=== PATIENT | male | born 1950 | race Hispanic/Latino ===

== ENCOUNTER 2018-08-21 12:05 | Inpatient (IN) | payer OTHER, MEDICARE ==
[2018-08-21 12:15] VITALS: BMI 32.1
--- NOTE | 2018-08-21 12:22 | ED PDOC ---
Lower Extremity Pain/Injury Time Seen by Provider: 08/21/18 12:20 Chief Complaint (Nursing): Lower Extremity Problem/Injury Chief Complaint (Provider): Left Ankle Pain History Per: Patient History/Exam Limitations: no limitations Onset/Duration Of Symptoms: Days (x3 weeks) Additional Complaint(s): Patient is a 68 year old male who presents to the ED for podiatry evaluation. Patient states 3 weeks ago he slipped on ice while stepping up on a sidewalk curb when he slipped and fell, sustaining a displaced fracture to the distal fibula. Patient reports he was under the care of his linux security administrator, Dr Stewart, who referred him to Dr Duarte for surgery. Patient reports no complaints at present and presented to the ED in a CAM boot with a cane. Patient reports localized swelling to the ankle but denies pain. PMD: Dr Osorio, [facility] Past Medical History Reviewed: Historical Data, Nursing Documentation, Vital Signs Vital Signs: Last Vital Signs Temp 98.2 F 08/21/18 12:15 Pulse 74 08/21/18 12:15 Resp 17 08/21/18 12:15 BP 186/92 H 08/21/18 12:15 Pulse Ox 96 08/21/18 12:15 - Medical History PMH: GERD, HTN Other PMH: "mild heart attack" - Surgical History Surgical History: Cholecystectomy - Family History Family History: States: Unknown Family Hx - Living Arrangements Living Arrangements: With Family - Social History Current smoker - smoking cessation education provided: No Alcohol: Social Drugs: Denies - Home Medications Home Medications: Ambulatory Orders Medication Instructions Recorded Albuterol Sulfate [Ventolin Hfa] 2 puff IH Q6 PRN 08/21/18 Esomeprazole Magnesium [Nexium] 20 mg PO DAILY 08/21/18 Fluticasone Nasal [Flonase] 2 spray HARSHA HS 08/21/18 Losartan [Cozaar] 25 mg PO DAILY 08/21/18 - Allergies Allergies/Adverse Reactions: Allergies Allergy/AdvReac Type Severity Reaction Status Date / Time No Known Allergies Allergy Verified 08/21/18 12:21 Review of Systems ROS Statement: Except As Marked, All Systems Reviewed And Found Negative Musculoskeletal: Positive for: Other (left ankle fracture) Physical Exam - Reviewed Nursing Documentation Reviewed: Yes Vital Signs Reviewed: Yes - Physical Exam Comments: GENERALIZED APPEARANCE: Patient is awake, alert, oriented x3 in no acute distress. Resting comfortably. SKIN: Warm, dry; (-) cyanosis. LOWER EXTREMITY: Ankle: (+) moderate effusion of the ankle with mild tenderness of the lateral malleolus/distal fibula (-) ecchymosis (-) erythema (-) skin break; (+) limited range of motion. Achilles tendon intact and nontender. Knee and foot: (-) injury with FROM. Capillary refill intact. CARDIOVASCULAR: (+) distal pulse. NEUROLOGIC: (+) distal sensation. CHEST AND RESPIRATORY: (-) wheezing; (-) rales, (-) rhonchi; breath sounds equal bilaterally. Respirations even and nonlabored. HEART AND CARDIOVASCULAR: (-) irregularity ABDOMEN AND GI: Soft; (-) tenderness. - Laboratory Results Result Diagrams: 08/21/18 13:00 08/21/18 13:00 - ECG O2 Sat by Pulse Oximetry: 96 (RA) Pulse Ox Interpretation: Normal Medical Decision Making Medical Decision Makin Initial Impression: displaced fibula fracture Plan: -IV access -CBC -CMP -PTT/PT -Type and Screen -EKG -CXR portable -Ankle XR 3 views left 1230 Case discussed with podiatry resident, Rosey Cabezas, who is agreeable to evaluation in ED. Recommends admission to med/surg for OR in AM. Case discussed with med environmental services assistant, Dr Black, who is agreeable to admission to med/surg. 1240 EKG: NSR @ 68bpm (-) ST elevation (+) LBBB, QTc 457 1330 Podiatry at bedside. See consult note. CBC and CMP grossly unremarkable. Coag profile WNL. Ankle XRs reviewed, radiology report follows Date of service: 08/21/2018 PROCEDURE: Left Ankle Radiographs. HISTORY: fracture, pre-op COMPARISON: None available. TECHNIQUE: 3 views obtained. FINDINGS: BONES: Oblique minimally displaced distal fibular fracture. No tibial fracture identified. JOINTS: Normal. No osteoarthritis. Ankle mortise maintained. Talar dome intact SOFT TISSUES: Normal. OTHER FINDINGS: None. IMPRESSION: Oblique minimally displaced distal fibular fracture. CXR reviewed, radiology report follows Date of service: 08/21/2018 HISTORY: pre-op clearance COMPARISON: No prior. TECHNIQUE: 1 view obtained. FINDINGS: LUNGS: No active pulmonary disease. PLEURA: No significant pleural effusion identified, no pneumothorax apparent. CARDIOVASCULAR: No aortic atherosclerotic calcification present. Normal cardiac size. No pulmonary vascular congestion. OSSEOUS STRUCTURES: No significant abnormalities. VISUALIZED UPPER ABDOMEN: Normal. OTHER FINDINGS: None. IMPRESSION: No active disease. 1500 On re-evaluation, patient resting comfortably on Ipad. No complaints offered. Vitals stable. Arrangements made for admission. Disposition - Clinical Impression Clinical Impression: Displaced fracture of fibula, Ankle effusion - Patient ED Disposition Is Patient to be Admitted: Yes (med/surg) Counseled Patient/Family Regarding: Studies Performed, Diagnosis - Disposition Disposition Time: 12:45 Condition: STABLE - Pt Status Changed To: Hospital Disposition Of: Inpatient (med/surg) - Admit Certification Admit to Inpatient:: After my assessment, the patient will require hospitalization for at least two midnights. This is because of the severity of symptoms shown, intensity of services needed, and/or the medical risk in this patient being treated as an outpatient. - POA Present On Arrival: None Results - Diagnostic Imaging Results Radiology Results Ankle X-Ray 08/21/18 12:30 IMPRESSION: Oblique minimally displaced distal fibular fracture. Chest X-Ray 08/21/18 12:33 IMPRESSION: No active disease.
[2018-08-21 13:12] LABS: BASO # 0.1 K/uL (0.0-0.2); BASO % 1.1 % (0.0-2.0); EOS # 0.1 K/uL (0.0-0.7); EOS % 2.5 % (0.0-4.0); HEMOGLOBIN 15.6 g/dL (12.0-18.0); LYMPH # 1.8 K/uL (1.0-4.3); LYMPH % 33.8 % (20.0-40.0); MEAN CORPUSCULAR HEMOGLOBIN 28.7 pg (27.0-31.0); MEAN CORPUSCULAR HGB CONC 32.9 g/dL (33.0-37.0); MEAN PLATELET VOLUME 9.2 fl (7.2-11.7); MONO # 0.5 K/uL (0.0-0.8); MONO % 9.4 % (0.0-10.0); NEUT # 2.8 K/uL (1.8-7.0); NEUT % 53.2 % (50.0-75.0); RBC 5.46 Mil/uL (4.40-5.90); RED CELL DISTRIBUTION WIDTH 14.6 % (11.5-14.5); WHITE BLOOD COUNT 5.2 K/uL (4.8-10.8)
[2018-08-21 13:22] LABS: ALB/GLOB RATIO 1.3 (1.0-2.1); ALBUMIN 4.3 g/dL (3.5-5.0); ALT/SGPT 29 U/L (21-72); AST/SGOT 24 U/L (17-59); BLOOD UREA NITROGEN 16 mg/dl (9-20); CALCIUM 9.6 mg/dL (8.4-10.2); GFR NON-AFRICAN AMERICAN > 60
[2018-08-21 13:23] LABS: PROTHROMBIN TIME 11.4 Seconds (9.8-13.1)
[2018-08-21 13:26] LABS: PARTIAL THROMBOPLASTIN TIME 33.6 Seconds (25.6-37.1)
--- NOTE | 2018-08-21 14:44 | CP.PCM.CON ---
History of Present Illness - History of Present Illness History of Present Illness: Podiatry Consult: Dr. Duarte 68 year male patient, with PMHx of HTN, seen and evaluated for L fibular fracture. Patient states that 3 weeks ago he slipped on ice and hurt his leg. He walked on his leg for 3 weeks before following up with his senior production manager who diagnosed him with a distal fibular fracture. His senior production manager recommended him to Dr. Duarte for fibular ORIF. He denies any additional pedal complaints. Patient continues to ambulate in CAM boot. Denies nausea/vomiting/fever/shortness of breath. PMHx: HTN, "mild VT years ago according to PMD" PSHx: Cholecystectomy ALL: NKDA Past Patient History - Past Social History Alcohol: Social Drugs: Denies - CARDIAC Hx Hypertension: Yes - GASTROINTESTINAL Hx Gastritis: Yes - PSYCHIATRIC Hx Substance Use: No - SURGICAL HISTORY Hx Cholecystectomy: Yes - ANESTHESIA Hx Anesthesia: Yes Meds Allergies/Adverse Reactions: Allergies Allergy/AdvReac Type Severity Reaction Status Date / Time No Known Allergies Allergy Verified 08/21/18 12:21 Physical Exam - Constitutional Appears: Non-toxic, No Acute Distress - Head Exam Head Exam: ATRAUMATIC, NORMOCEPHALIC - Extremities Exam Additional comments: Vascular: DP/PT 2/4, CFT < 3 seconds, TG warm to warm, + 1 edema appreciated Ortho: Pain with palpation of L distal fibular, mild tenderness with PROM/AROM, no pain with calf compression Neuro: Gross and protective sensation intact Derm: No open lesions, no erythema, no clinical signs of infection, no cellulitis appreciated - Neurological Exam Neurological exam: Alert, Oriented x3 - Psychiatric Exam Psychiatric exam: Normal Affect, Normal Mood - Skin Skin Exam: Warm Results - Vital Signs Recent Vital Signs: Last Vital Signs Temp 97.7 F 08/21/18 14:15 Pulse 64 08/21/18 14:15 Resp 16 08/21/18 14:15 BP 150/83 08/21/18 14:15 Pulse Ox 96 08/21/18 14:15 - Labs Result Diagrams: 08/21/18 13:00 08/21/18 13:00 Labs: Laboratory Results - last 24 hr 08/21/18 08/21/18 08/21/18 13:00 13:00 13:00 WBC 5.2 RBC 5.46 Hgb 15.6 Hct 47.5 MCV 87.0 MCH 28.7 MCHC 32.9 L RDW 14.6 H Plt Count 252 MPV 9.2 Neut % (Auto) 53.2 Lymph % (Auto) 33.8 Wheeler % (Auto) 9.4 Eos % (Auto) 2.5 Baso % (Auto) 1.1 Neut # (Auto) 2.8 Lymph # (Auto) 1.8 Wheeler # (Auto) 0.5 Eos # (Auto) 0.1 Baso # (Auto) 0.1 PT 11.4 INR 1.0 APTT 33.6 Sodium 139 Potassium 4.1 Chloride 102 Carbon Dioxide 28 Anion Gap 13 BUN 16 Creatinine 1.0 Est GFR ( Amer) > 60 Est GFR (Non-Af Amer) > 60 Random Glucose 107 Calcium 9.6 Total Bilirubin 0.6 AST 24 ALT 29 Alkaline Phosphatase 112 Total Protein 7.7 Albumin 4.3 Globulin 3.4 Albumin/Globulin Ratio 1.3 Blood Type Blood Type Confirm Antibody Screen BBK History Checked 08/21/18 08/21/18 13:00 13:26 WBC RBC Hgb Hct MCV MCH MCHC RDW Plt Count MPV Neut % (Auto) Lymph % (Auto) Wheeler % (Auto) Eos % (Auto) Baso % (Auto) Neut # (Auto) Lymph # (Auto) Wheeler # (Auto) Eos # (Auto) Baso # (Auto) PT INR APTT Sodium Potassium Chloride Carbon Dioxide Anion Gap BUN Creatinine Est GFR ( Amer) Est GFR (Non-Af Amer) Random Glucose Calcium Total Bilirubin AST ALT Alkaline Phosphatase Total Protein Albumin Globulin Albumin/Globulin Ratio Blood Type A POSITIVE Blood Type Confirm A POSITIVE Antibody Screen Negative BBK History Checked No verified bt Assessment & Plan - Assessment and Plan (Free Text) Assessment: 68 year male patient, with PMHx of HTN, seen and evaluated for L fibular fracture. Plan: Patient seen and evaluated Discussed in detail with Dr. Felicia Spann ankle x-rays taken; distal fibular fracture Discussed with patient the importance of icing and elevating L lower extremity Patient to remain NWB to the L lower extremity PT consulted NPO after midnight Please medically optimize patient Plan for OR tomorrow with Dr. Duarte at 12 pm - Date & Time Date: 08/21/18 Time: 14:44
--- NOTE | 2018-08-21 16:06 | RAD ---
Date of service: 08/21/2018 PROCEDURE: Left Ankle Radiographs. HISTORY: fracture, pre-op COMPARISON: None available. TECHNIQUE: 3 views obtained. FINDINGS: BONES: Oblique minimally displaced distal fibular fracture. No tibial fracture identified. JOINTS: Normal. No osteoarthritis. Ankle mortise maintained. Talar dome intact SOFT TISSUES: Normal. OTHER FINDINGS: None. IMPRESSION: Oblique minimally displaced distal fibular fracture.
--- NOTE | 2018-08-21 16:08 | RAD ---
Date of service: 08/21/2018 HISTORY: pre-op clearance COMPARISON: No prior. TECHNIQUE: 1 view obtained. FINDINGS: LUNGS: No active pulmonary disease. PLEURA: No significant pleural effusion identified, no pneumothorax apparent. CARDIOVASCULAR: No aortic atherosclerotic calcification present. Normal cardiac size. No pulmonary vascular congestion. OSSEOUS STRUCTURES: No significant abnormalities. VISUALIZED UPPER ABDOMEN: Normal. OTHER FINDINGS: None. IMPRESSION: No active disease.
--- NOTE | 2018-08-22 08:32 | CARD ---
APPROVED REPORT Date of service: 08/21/2018 EKG Measurement Heart [id number] <Conclusion> Normal sinus rhythm Possible Left atrial enlargement Left bundle branch block Abnormal ECG
[2018-08-22] MEDS ORDERED: Enoxaparin 30 mg Syringe SC SCH (09:00)
--- NOTE | 2018-08-22 09:08 | CP.PCM.PN ---
Subjective - Date & Time of Evaluation Date of Evaluation: 08/22/18 Time of Evaluation: 09:08 - Subjective Subjective: Podiatry Progress Note: Dr. Duarte 68 year male patient, with PMHx of HTN, seen and evaluated this AM for L fibular fracture. Patient resting comfortably and in NAD. He denies any additional pedal complaints. Patient refusing first echo, agreeable to echo upon second attempt. Denies nausea/vomiting/fever/shortness of breath. Objective - Vital Signs/Intake and Output Vital Signs (last 24 hours): Temp Pulse Resp BP Pulse Ox 97.9 F 79 20 157/79 H 96 08/21/18 23:49 08/21/18 23:49 08/21/18 23:49 08/21/18 23:49 08/21/18 23:49 - Medications Medications: Current Medications Enoxaparin Sodium (Lovenox) 40 mg SC DAILY [facility]; Protocol Losartan Potassium (Cozaar) 25 mg PO DAILY [facility] Pantoprazole Sodium (Protonix Ec Tab) 40 mg PO DAILY [facility] - Labs Labs: 08/21/18 13:00 08/21/18 13:00 PT 11.4 Seconds (9.8-13.1) 08/21/18 13:00 INR 1.0 08/21/18 13:00 APTT 33.6 Seconds (25.6-37.1) 08/21/18 13:00 - Constitutional Appears: Non-toxic, No Acute Distress - Head Exam Head Exam: ATRAUMATIC, NORMOCEPHALIC - Extremities Exam Additional comments: Vascular: DP/PT 2/4, CFT < 3 seconds, TG warm to warm, + 1 edema appreciated Ortho: Pain with palpation of L distal fibular, mild tenderness with PROM/AROM, no pain with calf compression Neuro: Gross and protective sensation intact Derm: No open lesions, no erythema, no clinical signs of infection, no cellulitis appreciated - Neurological Exam Neurological Exam: Alert, Awake, Oriented x3 - Psychiatric Exam Psychiatric exam: Normal Affect, Normal Mood Assessment and Plan - Assessment and Plan (Free Text) Assessment: 68 year male patient, with PMHx of HTN, seen and evaluated for L fibular fracture. Plan: Patient seen and evaluated Discussed in detail with Dr. Felicia Spann ankle x-rays taken; distal fibular fracture Discussed with patient the importance of icing and elevating L lower extremity Patient to remain NWB to the L lower extremity PT consulted Plan for OR tomorrow with Dr. Duarte today pending cardiac clearance
[2018-08-22] MEDS: Pantoprazole 40 mg EC Tab PO SCH (11:00)
[2018-08-22] MEDS: Enoxaparin 40 mg Syringe SC SCH (11:00)
--- NOTE | 2018-08-22 11:57 | CP.PCM.PCO ---
Physician Communication Note - Physician Communication Note Physician Communication Note: If Trop is -ve OK with surger Cardiacwise.Postop Tele.Preop venous doppler
--- NOTE | 2018-08-22 12:59 | CARD ---
APPROVED REPORT Date of service: 08/22/2018 EXAM: Two-dimensional and M-mode echocardiogram with Doppler and color Doppler. Other Information Quality : GoodRhythm : LBBB INDICATION Pre-Op 2D DIMENSIONS IVSd1.83 (0.7-1.1cm)LVDd4.33 (3.9-5.9cm) LVOT Diameter2.56 (1.8-2.4cm)PWd1.26 (0.7-1.1cm) IVSs2.19 (0.8-1.2cm)LVDs2.65 (2.5-4.0cm) FS (%) 38.8 %PWs1.82 (0.8-1.2cm) M-Mode DIMENSIONS Left Atrium (MM)5.41 (2.5-4.0cm)Aortic Root3.47 (2.2-3.7cm) Aortic Cusp Exc.2.03 (1.5-2.0cm) Aortic Valve AoV Peak Vsmpmuui173.7cm/sAoV VTI28.1cmAO Peak GR.9mmHg LVOT Peak Czzpnzql798.2cm/sLVOT VTI21.66cmAO Mean GR.5mmHg IVELISSE (VMAX)1.88ft3ADL (VTI)1.81cm2 Mitral Valve MV E Hojikuzf55.6cm/sMV DECEL [id number] A Emwrcxhj37.3cm/s MV WWO65dbS/A ratio0.6MVA (PHT)2.88cm2 TDI E/Lateral E'0.0E/Medial E'0.0 LEFT VENTRICLE The left ventricle is normal size. There is normal left ventricular wall thickness. The echo findings are consistent with hypertrophic cardiomyopathy. The left ventricular systolic function is normal. The estimated ejection fraction is 65-70% No regional wall motion abnormalities noted.. Transmitral Doppler flow pattern is Grade I-abnormal relaxation pattern. No left ventricle thrombus noted on this study. There is no ventricular septal defect visualized. There is no left ventricular aneurysm. There is no mass noted in the left ventricle. RIGHT VENTRICLE The right ventricle is normal size. There is normal right ventricular wall thickness. The right ventricular systolic function is normal. ATRIA The left atrium is moderately dilated.m size is normal. The right atrium size is normal. The interatrial septum is intact with no evidence for an atrial septal defect. AORTIC VALVE The aortic valve is normal in structure. No aortic regurgitation is present. There is no aortic valvular stenosis. There is no aortic valvular vegetation. MITRAL VALVE The mitral valve is normal in structure. There is no evidence of mitral valve prolapse. There is no mitral valve stenosis. There is no mitral valve regurgitation noted. TRICUSPID VALVE The tricuspid valve is normal in structure. There is no tricuspid valve regurgitation noted. There is no tricuspid valve prolapse or vegetation. There is no tricuspid valve stenosis. PULMONIC VALVE The pulmonary valve is normal in structure. There is no pulmonic valvular regurgitation. There is no pulmonic valvular stenosis. GREAT VESSELS The aortic root is normal in size. The ascending aorta is normal in size. The pulmonary artery is normal. The IVC is normal in size and collapses >50% with inspiration. PERICARDIAL EFFUSION There is no pericardial effusion. There is no pleural effusion. <Conclusion> Moderate asymmetrical septal hypertrophy compatible with hypertrophic cardiomyopathy. Normal LV size The estimated ejection fraction is 65-70%%- within normal limits Moderately dilated Left Atrium
--- NOTE | 2018-08-22 14:15 | US ---
Date of service: 08/22/2018 HISTORY: R/o DVT. PRIORS: Not available FINDINGS: 2-D, color and duplex Doppler analysis of the lower extremity venous circulation using routine protocol from the femoral veins through the popliteal veins. Venous compressibility: Normal. Flow and augmentation patterns: Normal. Visualized veins upper third of calf: Normal. Smith cyst: None. IMPRESSION: No sonographic or Doppler evidence for DVT in left lower extremity.
--- NOTE | 2018-08-22 20:23 | CARD ---
APPROVED REPORT Date of service: 08/22/2018 EKG Measurement Heart [id number] <Conclusion> Normal sinus rhythm Left bundle branch block Abnormal ECG
--- NOTE | 2018-08-22 22:55 | CON ---
DATE: 08/22/2018 CARDIOLOGY CONSULTATION REASON FOR CONSULTATION: Preoperative evaluation and abnormal EKG. HISTORY OF PRESENT ILLNESS: The patient is a 68-year-old male who has a history of hypertension, bronchial asthma. The patient also has a history of left bundle-branch block and stated that he had cardiac workup 19 years ago for left bundle-branch block and his cardiac catheterization was normal at that point. The patient sustained a fall with left ankle fracture some three weeks ago by sliding on an ice; however, he was treated at home with bandage and ice compresses, was able to put weight on his foot and did not seek any medical attention until he presented because of left leg pain and cramps and the patient was found to have obliquely minimally displaced distal left fibular fracture. The patient denies any chest pain or shortness of breath. SOCIAL HISTORY: The patient quit smoking many years ago. He worked as a computer technical specialist. MEDICATIONS: Cozaar 25 mg once a day, Lovenox 40 mg subcutaneously once a day, Protonix 40 mg p.o. once a day. REVIEW OF SYSTEMS: No nausea or vomiting. No dizziness or syncope. The patient reported left leg cramps. PAST MEDICAL HISTORY: Hypertension, bronchial asthma, and left bundle-branch block. PHYSICAL EXAMINATION: GENERAL: The patient is an elderly male who does not appear to be in acute distress. VITAL SIGNS: Blood pressure 159/79, heart rate 79, temperature 97.9, and respirations 20. HEENT: Normocephalic. CHEST: Clear. HEART: S1 and S2, regular. ABDOMEN: Soft. EXTREMITIES: Minimal left ankle edema. No calf tenderness. LABORATORY DATA: Admitting hemoglobin and hematocrit 15.6 and 47.5, white count and platelet count are within normal limits. Admitting SMA-7: Sodium 139, potassium 4.1, chloride 102, CO2 of 28, glucose 107, BUN 16, and creatinine 1. PT, PTT, and INR are within normal limits. EKG revealed sinus rhythm with left bundle-branch block. Echocardiographic study was reviewed and it revealed normal ejection fraction and aortic valve area measured at 1.8 cm2 with moderate dilated left atrium. ASSESSMENT: 1. Status post fall with left distal fibular fracture from three weeks ago. 2. Left bundle-branch block, which is an old finding according to the patient. 3. Hypertension. RECOMMENDATIONS: I did recommend stat troponin to be obtained and if negative, the patient can undergo his surgery from the cardiac point of view with close preoperative blood pressure and rate monitoring and postoperative telemetry monitoring. However, I strongly recommend that the patient undergo venous Doppler of lower extremity prior to his surgery as he was sedentary for three weeks prior to his admission. Hong Santos MD
--- NOTE | 2018-08-23 06:56 | CP.PCM.HP ---
History of Present Illness - History of Present Illness History of Present Illness: This is a 68 y/o male with hx of HTN and CAD admitted for surgical intervention for distal left fibular fracture. He fell on ice 3 weeks ago and self treated it as a sprain of the left ankle. Noted to have persistent left ankle swelling hence sought evaluation and Xray showed left distal fibular fracture. He has a hx of HTN and on Losartan low dose. He waas told by his PMD that he may have had a mild ID in the past. EKG showed LBBB and non sp ST changes. He denies any chest pain or SOB. Present on Admission - Present on Admission Any Indicators Present on Admission: No History of DVT/PE: No History of Uncontrolled Diabetes: No Urinary Catheter: No Decubitus Ulcer Present: No Past Patient History - Past Social History Smoking Status: Former Smoker - CARDIAC Hx Hypertension: Yes - PULMONARY Hx Asthma: Yes - NEUROLOGICAL Hx Neurological Disorder: No - HEENT Hx HEENT Problems: No - RENAL Hx Chronic Kidney Disease: No - ENDOCRINE/METABOLIC Hx Endocrine Disorders: No - HEMATOLOGICAL/ONCOLOGICAL Hx Blood Disorders: No - INTEGUMENTARY Hx Dermatological Problems: No - MUSCULOSKELETAL/RHEUMATOLOGICAL Hx Musculoskeletal Disorders: No Hx Falls: Yes - GASTROINTESTINAL Hx Gastritis: Yes - GENITOURINARY/GYNECOLOGICAL Hx Genitourinary Disorders: No - PSYCHIATRIC Hx Psychophysiologic Disorder: No Hx Substance Use: No - SURGICAL HISTORY Hx Cholecystectomy: Yes - ANESTHESIA Hx Anesthesia: Yes Meds Allergies/Adverse Reactions: Allergies Allergy/AdvReac Type Severity Reaction Status Date / Time No Known Allergies Allergy Verified 08/21/18 12:21 Physical Exam - Head Exam Head Exam: NORMAL INSPECTION - Eye Exam Eye Exam: Normal appearance - ENT Exam ENT Exam: Mucous Membranes Moist - Respiratory Exam Respiratory Exam: Clear to Auscultation Bilateral - Cardiovascular Exam Cardiovascular Exam: REGULAR RHYTHM - GI/Abdominal Exam GI & Abdominal Exam: Normal Bowel Sounds - Neurological Exam Neurological exam: CN II-XII Intact Results - Vital Signs Recent Vital Signs: Last Vital Signs Temp 97.7 F 08/23/18 00:35 Pulse 80 08/23/18 00:35 Resp 18 08/23/18 00:35 BP 121/76 08/23/18 00:35 Pulse Ox 94 L 08/23/18 00:35 - Labs Result Diagrams: 08/21/18 13:00 08/21/18 13:00 Labs: Laboratory Results - last 24 hr 08/22/18 11:55 Troponin I < 0.0120 Assessment & Plan (1) Displaced fracture of fibula Status: Acute (2) Hypertension Status: Acute - Assessment and Plan (Free Text) Plan: start Pain meds Podiatry cardiology medically stable for surgery pain meds prn
--- NOTE | 2018-08-23 07:10 | CP.PCM.PN ---
Subjective - Date & Time of Evaluation Date of Evaluation: 08/23/18 Time of Evaluation: 07:09 - Subjective Subjective: Podiatry Progress Note: Dr. Duarte 68 year male patient, with PMHx of HTN, seen and evaluated this AM for L fibular fracture. Patient resting comfortably and in NAD. Patient is aware of surgical procedure this morning and does not have any questions or concerns at this time. Denies any additional pedal complaints. Patient has remained NPO since midnight as instructed. Denies nausea/vomiting/fever/shortness of breath. Objective - Vital Signs/Intake and Output Vital Signs (last 24 hours): Temp Pulse Resp BP Pulse Ox 97.7 F 80 18 121/76 94 L 08/23/18 00:35 08/23/18 00:35 08/23/18 00:35 08/23/18 00:35 08/23/18 00:35 - Medications Medications: Current Medications Enoxaparin Sodium (Lovenox) 40 mg SC DAILY [facility]; Protocol Last Admin: 08/22/18 11:00 Dose: Not Given Losartan Potassium (Cozaar) 25 mg PO DAILY [facility] Last Admin: 08/22/18 11:00 Dose: Not Given Pantoprazole Sodium (Protonix Ec Tab) 40 mg PO DAILY [facility] Last Admin: 08/22/18 11:00 Dose: Not Given - Labs Labs: 08/21/18 13:00 08/21/18 13:00 PT 11.4 Seconds (9.8-13.1) 08/21/18 13:00 INR 1.0 08/21/18 13:00 APTT 33.6 Seconds (25.6-37.1) 08/21/18 13:00 - Constitutional Appears: Non-toxic, No Acute Distress - Head Exam Head Exam: ATRAUMATIC, NORMOCEPHALIC - Extremities Exam Additional comments: Vascular: DP/PT 2/4, CFT < 3 seconds, TG warm to warm, + 1 edema appreciated Ortho: Pain with palpation of L distal fibular, mild tenderness with PROM/AROM, no pain with calf compression Neuro: Gross and protective sensation intact Derm: No open lesions, no erythema, no clinical signs of infection, no cellulitis appreciated - Neurological Exam Neurological Exam: Alert, Awake, Oriented x3 - Psychiatric Exam Psychiatric exam: Normal Affect, Normal Mood Assessment and Plan - Assessment and Plan (Free Text) Assessment: 68 year male patient, with PMHx of HTN, seen and evaluated for L fibular fracture; plan for OR today for L fibular ORIF Plan: Patient seen and evaluated Discussed in detail with Dr. Duarte L ankle x-rays taken; distal fibular fracture Pt NPO status was confirmed All pre-op testing and clearance in chart Patient has exhausted all conservative treatment at this time and is opting for surgical intervention Patient was explained procedure and post-operative course Patient understands all risks, benefits and complications of procedure No guarantees were made Plan for OR today with Dr. Duarte today for L fibular fracture ORIF
[2018-08-23] MEDS ORDERED: Propofol 10 mg/ml Inj (20 ML) ONE (07:23)
[2018-08-23] MEDS ORDERED: ePHEDrine 50 mg/ml Inj ONE (07:24)
[2018-08-23] MEDS ORDERED: Midazolam 2 MG/2 ML VIAL ONE (07:24)
[2018-08-23] MEDS ORDERED: Rocuronium 10 mg/ml (5 ml) ONE (07:25)
[2018-08-23] MEDS ORDERED: Lidocaine 4% (Laryng-O-Jet) Kit MM ONE (07:25)
[2018-08-23] MEDS ORDERED: Ropivacaine 0.5% 30ML IV ONE (07:36)
[2018-08-23] MEDS ORDERED: Succinylcholine 200 mg/10 ml Inj IV ONE (07:37)
[2018-08-23] MEDS ORDERED: Bupivacaine HCl 0.5% PF (30 ml) Inj ONE (08:02)
[2018-08-23] MEDS ORDERED: Lactated Ringer's 1,000 ML IV ONE (08:05)
[2018-08-23] MEDS ORDERED: Dexamethasone 4 mg/1 ml ONE ×2 (08:51→08:53)
[2018-08-23] MEDS ORDERED: Bupivacaine HCl 0.5% PF (30 ml) Inj IJ ONE ×2 (09:00→09:50)
[2018-08-23] MEDS ORDERED: Dexamethasone 4 mg/1 ml IM ONE (09:50)
[2018-08-23] MEDS ORDERED: Neostigmine 1:1000 (1 mg/ml) Inj ONE (09:56)
--- NOTE | 2018-08-23 10:23 | PCM.SURG1 ---
Surgeon's Initial Post Op Note - Surgeon's Notes Surgeon: Dr. Duarte DPM Banjo Repair Person: Dr. Spangler PGY1, Dr. Delcid PGY2, Dr. Stubbs PGY1 Pre-Operative Diagnosis: Left fibular fracture Operative Findings: See dictation. Post-Operative Diagnosis: Same Operation Performed: Left fibular ORIF Specimen/Specimens Removed: None Estimated Blood Loss: EBL {In ML}: 3 Blood Products Given: N/A Drains Used: No Drains Post-Op Condition: Good Date of Surgery/Procedure: 08/23/18 Time of Surgery/Procedure: 10:23
[2018-08-23] MEDS ORDERED: Oxycodone/Acetaminophen 5/325 mg Tab PO PRN ×2 (10:24)
[2018-08-23] MEDS ORDERED: HYDROmorphone 0.5 mg/0.5 ml ISec IVP PRN (10:25)
[2018-08-23] MEDS ORDERED: Lactated Ringer's 1,000 ML IV SCH (10:30)
--- NOTE | 2018-08-23 10:31 | PCM.ANESB2 ---
Popliteal Nerve Block - Popliteal Nerve Block Date of Procedure: 08/23/18 Anesthesiologist: Shy Pre-Procedure Diagnosis: Left Fibula Fracture Post-Procedure Diagnosis: Left Fibula Fracture Procedure Performed: Popliteal Nerve Block Left - Procedure Popliteal Nerve Block: This procedure was explained to the patient that it is for post-operative pain management. Consent was obtained after a thorough discussion with the patient regarding the benefits and possible complications of local anesthetic block of the sciatic nerve at the popliteal level. The patient was brought to the operating room and standard monitors are applied. Time-out was held with the circulating nurse to confirm the correct surgery and the appropriate block. After applying oxygen by nasal cannula and administering IV Sedation, patient's operative leg was gently raised and supported and the groove in between the biceps femoris and vastus lateralis muscles was carefully palpated. The skin approximately 8cm above the popliteal crease was then marked. The ultrasound transducer was then applied to the posterior thigh approximately 8cm above the popliteal crease in the transverse plane and the sciatic nerve before its division was visualized lateral to the popliteal artery and in between the bicep femoris and semimembranosus/semitendinosus muscles. After identification, the lateral portion of the thigh was prepped with Betadine solution three times and Lidocaine 1% was injected subcutaneously for topical anesthesia. At this point, a # 21 gauge Stimuplex insulated 4 inch needle was inserted into pre-marked area and advanced in a perpendicular direction. The needle was inserted above the ultrasound transducer in-plane towards the sciatic nerve in a [id number]-[id number] direction. Needle advancement was performed carefully under direct ultrasound visualization. Nerve stimulator was used and dorsiflexion of the left foot was elicited at a current of 0.3 MA. After repeated negative aspiration, 20 cc of 0.5 % Ropivicaine as injected. Under ultrasound guidance the local anesthetics were observed surrounding sciatic nerve . The needle was removed intact and sterile dressing was applied. The patient tolerated the popliteal nerve block well with stable vital signs and was subsequently prepared for the surgery.
--- NOTE | 2018-08-23 15:19 | CP.PCM.PCO ---
Physician Communication Note - Physician Communication Note Physician Communication Note: Dr. Osorio called to [phone] but did not answer
[2018-08-23] MEDS: Pantoprazole 40 mg EC Tab PO SCH (15:43)
[2018-08-23] MEDS: Enoxaparin 40 mg Syringe SC SCH (16:01)
[2018-08-23 16:16] LABS: BLOOD UREA NITROGEN 18 mg/dl (9-20); CALCIUM 9.5 mg/dL (8.4-10.2); GFR NON-AFRICAN AMERICAN > 60
[2018-08-23] MEDS: Alum-Mag Hydrox-Simethicone Susp (30 mL) PO PRN (18:08)
--- NOTE | 2018-08-23 19:29 | CARD ---
APPROVED REPORT Date of service: 08/23/2018 EKG Measurement Heart [id number] <Conclusion> Sinus tachycardia Possible Left atrial enlargement Left bundle branch block Abnormal ECG
--- NOTE | 2018-08-23 21:27 | OP ---
PROCEDURE DATE: 08/23/2018 SURGEON: Dakota Duarte DPM ASSISTANTS: SANAZ Sauceda PGY-3; Carson Delcid DPM, PGY-2; and Zain Stubbs DPM, PGY-1. SERVICES MGR: Rosey Begum MD. ANESTHESIA: General with popliteal block and local block PREOPERATIVE DIAGNOSIS: Displaced fracture of distal fibula, left ankle POSTOPERATIVE DIAGNOSIS: Displaced fracture of distal fibula, left ankle PROCEDURES: Open reduction with internal fixation of displaced fibula fracture of left ankle. INDICATION: The patient is a 68-year-old male with the above-mentioned diagnosis. Of note, the patient did present to the office 2 days ago with the history of slipping and falling on ice three weeks prior. The patient was ambulatory to the left lower extremity with a CAM boot. The patient was then sent to the emergency department for admission and preoperative clearance prior to presenting to the operating room. The patient has exhausted all conservative treatment measures at this time and now requires surgical intervention. The patient signed the consent after careful explanation of all risks, benefits, complications, and alternatives for surgical procedure. No guarantees were given nor implied. Ancef 2 g IV was given to the patient prior to the procedure. N.p.o. status was confirmed prior to bringing the patient into the operating room. PREPARATION: The patient was brought into the operating room and placed on the operating room table in a supine position. A well-padded pneumatic thigh tourniquet was placed to the patient's left thigh with plenty of Webril cast padding. The left foot and ankle were then prepped and draped in the usual sterile manner. Esmarch bandage was utilized to exsanguinate the patient's left foot and ankle. A pneumatic thigh tourniquet was then inflated to 350 mmHg and the procedure begun. DESCRIPTION OF PROCEDURE: Open reduction with internal fixation of distal fibula fracture of left ankle using plate and screw fixation. Our attention was now directed to the lateral aspect of the patient's left ankle at the level of the distal fibula and an approximately 10 cm linear longitudinal incision was made over the lateral aspect of the fibula from proximal to a distal orientation with care taken to stay anterior to the peroneal tendons. A combination of sharp and blunt tissue dissection was utilized to deepen the incision through the subcutaneous tissue. All bleeders were cauterized and ligated as necessary and vital neurovascular structures were avoided. Next, a #15 blade was used to make a sharp periosteal incision over the lateral aspect of the fibula down to the level of bone. A Marengo elevator was utilized to free the periosteum medially and laterally thus exposing the distal fibula and the fracture fragment in question, which was located at the level of the joint, into the operative site. At this time, any soft tissues and godfrey debris was then debrided from the fracture site and the surgical site was flushed with copious amounts of sterile normal saline solution. Next, traction was applied to the distal fibula fracture fragment and the foot and ankle were placed in a supinated position in order to allow for reduction of the distal fibula. At this time, a clamp was utilized to realign the fracture of the fibula into a more anatomic length and position. Position of the fracture fragment was checked using intraoperative fluoroscopy at this time with excellent reduction of the deformity noted with anatomic position of the ankle mortise appreciated. Next, a 2.0 K-wire was driven across the fracture fragment in perpendicular fashion. The K-wire was then removed and using standard AO principles and technique, a Synthes 3.5 x 32 mm cortical lag screw was then inserted across the fracture site with excellent compression achieved. Next, a 4-hole locking compression distal fibula plate from [employer] was then chosen and then placed at the distal-lateral aspect of the fibula. BB-Taks were now utilized to temporarily fixate the plate to the bone. Next, using standard AO principles and techniques, various lengths of 2.7 locking screws were inserted to the proximal and distal aspect of the plate for total of 4 locking screws distally and 2 locking screws proximally. Additionally two 3.5 cortical screws of various lengths were inserted into the central aspect of the plate in the oblong non-locking holes. Reduction of the fracture fragment appeared to be excellent at this time with proper bone to plate contour appreciated. It should be noted that at various times during the insertion of these screws and with the plate, the screw lengths were also checked using intraoperative fluoroscopy with excellent contour of the [id number] interface and adequate reduction of the fracture fragment at this time. The surgical site was then flushed with copious amounts of sterile normal saline solution. The periosteal tissue was reapproximated using 2-0 Vicryl suture in a running interlocking suture technique. The subcutaneous tissue was reapproximated using 3-0 Vicryl and the skin edges reapproximated using 4-0 Monocryl suture in a running suture technique. Postoperatively, the incision site was blocked using 0.5% Marcaine plain 10 mL and 2 mL consisting of a total of 8 mg of dexamethasone phosphate was inserted into the skin incision edges. The surgical site was then dressed with Steri-Strips, saline, moist gauze, 4x4, Christine, Kerlix and a well-padded below-knee fiberglass cast was placed to the patient's left lower extremity with the foot placed in a dorsiflexed position in relation to the leg. POSTOPERATIVE CONDITION: The patient tolerated the procedure and the anesthesia well with no apparent complications or complaints. The patient was escorted from the OR to recovery room with vital signs stable and neurovascular status intact to the patient's left lower extremity. The patient will be strictly nonweightbearing in a cast to the left lower extremity with crutches. The patient will follow up with Dr. Duarte in the office within 1 week. Beatriz Spangler DPM Dakota Duarte DPM GEOVANNA
--- NOTE | 2018-08-23 23:32 | PN ---
DATE: 08/23/2018 SUBJECTIVE: The patient underwent open reduction internal fixation of left fibular fracture. He is currently in the recovery room. Denies any chest pain or shortness of breath and . PHYSICAL EXAMINATION: VITAL SIGNS: Blood pressure 154/90, heart rate 101, temperature 97.2, respirations 20. HEENT: Normocephalic. CHEST: Clear. HEART: S1 and S2, regular.. EXTREMITIES: Dressing is applied to the left leg. LABORATORY DATA: Yesterday's troponin was within normal limits. Yesterday's venous Doppler lower extremity, no evidence of DVT. ASSESSMENT: 1. Status post open reduction and internal fixation of distal left fibular fracture. 2. History of left bundle-branch block. 3. History of hypertension. RECOMMENDATIONS: The patient was supposed to be admitted to telemetry; however, there is no available telemetry bed and there will not be someone until late this evening. I will repeat 12-lead EKG and if there is no change, the patient will be monitored on the medical floor on the sixth floor. Subcutaneous Lovenox 20 mg will be resumed as well as Cozaar 25 mg daily. Hong Santos MD
--- NOTE | 2018-08-23 23:35 | PN ---
DATE: 08/23/2018 SUBJECTIVE: The patient underwent an EKG in the recovery room which revealed sinus tachycardia at the rate of 114 and left bundle-branch block. Because of lack of availability of telemetry bed, I recommended to admit the patient to the medical floor pending a telemetry bed. I discussed the case with Podiatry. I reasoned that the patient needed to stay overnight because of the slight sinus tachycardia with a repeat EKG in the morning. I was called by a doctor by the name of Dr. Osorio at area code [phone]. I was routed to several office secretaries. However, after long waiting for nearly 20 minutes, I could not reach or get access to Dr. Osorio and I do not know for what reason he called and if he is on the case or not and I requested from the staff if he needs to reach me, he can either leave a cell phone number or call me directly on my cell phone number. Hong aSntos MD
[2018-08-24 00:22] VITALS: RESP 18
[2018-08-24] MEDS: Alum-Mag Hydrox-Simethicone Susp (30 mL) PO PRN (00:43)
[2018-08-24 05:38] LABS: HEMOGLOBIN 14.9 g/dL (12.0-18.0); MEAN CELL VOLUME 86.7 fl (80.0-94.0); MEAN CORPUSCULAR HEMOGLOBIN 28.6 pg (27.0-31.0); RBC 5.21 Mil/uL (4.40-5.90); RED CELL DISTRIBUTION WIDTH 14.6 % (11.5-14.5)
[2018-08-24 05:48] LABS: BLOOD UREA NITROGEN 19 mg/dl (9-20); CALCIUM 9.5 mg/dL (8.4-10.2); GFR NON-AFRICAN AMERICAN > 60
[2018-08-24 05:56] LABS: WHITE BLOOD COUNT 16.5 K/uL (4.8-10.8)
--- NOTE | 2018-08-24 08:01 | RAD ---
Date of service: 08/23/2018 PROCEDURE: Left Ankle Radiographs. HISTORY: L fibular ORIF COMPARISON: Left ankle radiographs 08/21/2018. TECHNIQUE: 3 views obtained. FINDINGS: BONES: Patient seen by status post ORIF for distal fibular/lateral malleolar fracture including lateral compression plate transfixed by 8 compression screws. Solitary independent compression screw also reduces trimalleolar fracture. JOINTS: Limited degenerative cortical sclerosis and osteophyte development again evident. Ankle mortise maintained. Talar dome intact SOFT TISSUES: Limited postoperative changes seen at the lateral ankle soft tissues predominantly. Trace emphysematous changes are related. OTHER FINDINGS: None. IMPRESSION: Postop changes status post ORIF lateral malleolar fracture as discussed above. No new interval fracture or subluxation/dislocation identified left ankle.
[2018-08-24 08:02] VITALS: O2SAT 95
[2018-08-24] MEDS: Enoxaparin 40 mg Syringe SC SCH (09:08)
[2018-08-24] MEDS: Pantoprazole 40 mg EC Tab PO SCH (09:09)
[2018-08-24] MEDS ORDERED: levoFLOXacin 500 mg in D5W 500 MG/100 ML BAG IVPB SCH (09:30)
[2018-08-24] MEDS ORDERED: Dexamethasone/Tobramycin Ophth Susp OU SCH (10:00)
--- NOTE | 2018-08-24 11:57 | CP.PCM.PN ---
Subjective - Date & Time of Evaluation Date of Evaluation: 08/24/18 Time of Evaluation: 11:57 - Subjective Subjective: Podiatry Progress Note: Dr. Duarte 68 year male patient, with PMHx of HTN, seen and evaluated this morning, Dr. Duarte for L fibular ORIF. Patient denies any pain to his L lower extremity at this time. Patient denies N/V/F however admits to cough. Objective - Vital Signs/Intake and Output Vital Signs (last 24 hours): Temp Pulse Resp BP Pulse Ox 97.8 F 73 18 137/76 95 08/24/18 08:01 08/24/18 09:10 08/24/18 08:01 08/24/18 09:10 08/24/18 08:01 - Medications Medications: Current Medications Acetaminophen (Tylenol 325mg Tab) 650 mg PO Q4 PRN PRN Reason: Pain, Mild (1-3) Al Hydrox/Mg Hydrox/Simethicone (Maalox Plus 30 Ml) 30 ml PO Q6 PRN PRN Reason: Indigestion / Heartburn Last Admin: 08/24/18 00:43 Dose: 30 ml Aspirin (Ecotrin) 81 mg PO DAILY [facility] Last Admin: 08/24/18 09:08 Dose: 81 mg Enoxaparin Sodium (Lovenox) 40 mg SC DAILY [facility]; Protocol Last Admin: 08/24/18 09:08 Dose: 40 mg Levofloxacin/Dextrose (Levaquin 500mg) 500 mg in 100 mls @ 100 mls/hr IVPB DAILY [facility]; Protocol Losartan Potassium (Cozaar) 25 mg PO DAILY [facility] Last Admin: 08/24/18 09:10 Dose: 25 mg Metoprolol Tartrate (Lopressor) 25 mg PO Q12 [facility] Last Admin: 08/24/18 09:09 Dose: 25 mg Oxycodone/Acetaminophen (Percocet 5/325 Mg Tab) 1 tab PO Q4 PRN PRN Reason: Pain, moderate (4-7) Stop: 08/26/18 10:25 Oxycodone/Acetaminophen (Percocet 5/325 Mg Tab) 2 tab PO Q4 PRN PRN Reason: Pain, severe (8-10) Stop: 08/26/18 10:25 Pantoprazole Sodium (Protonix Ec Tab) 40 mg PO DAILY [facility] Last Admin: 08/24/18 09:09 Dose: 40 mg Tobramycin/Dexamethasone (Tobradex Opht Susp) 2 drop OU Q6 [facility] - Labs Labs: 08/24/18 05:10 08/24/18 05:10 PT 11.4 Seconds (9.8-13.1) 08/21/18 13:00 INR 1.0 08/21/18 13:00 APTT 33.6 Seconds (25.6-37.1) 08/21/18 13:00 - Constitutional Appears: Non-toxic, No Acute Distress - Head Exam Head Exam: ATRAUMATIC, NORMOCEPHALIC - Extremities Exam Additional comments: Bivalved cast left C/D/I NVS intact Patient able to wiggle toes CFT < 3 seconds to digits - Neurological Exam Neurological Exam: Alert, Awake, Oriented x3 - Psychiatric Exam Psychiatric exam: Normal Affect, Normal Mood Assessment and Plan - Assessment and Plan (Free Text) Assessment: 68 year male patient, with PMHx of HTN, POD#1 for L fibular ORIF Plan: Patient seen and evaluated Discussed in detail with Dr. Duarte Afebrile, VSS, WBC 16.5, foot unlikely source of elevated WBC count Cardio reccs per Dr. Tamika Spann ankle x-rays taken; distal fibular fracture Post op x-rays; Postop changes status post ORIF lateral malleolar fracture. No new interval fracture or subluxation/dislocation identified left ankle Discussed with patient the importance of icing and elevating L lower extremity Patient to remain NWB to L lower extremity with the use of crutches Patient to follow up with Dr. Duarte within 1 week of discharge Will continue to follow
[2018-08-24 12:05] VITALS: BP 117/64; PULSE 62; TEMP 98.8
--- NOTE | 2018-08-24 12:17 | RAD ---
Date of service: 08/24/2018 HISTORY: Leukocytosis COMPARISON: 08/21/2018. FINDINGS: LUNGS: No active pulmonary disease. PLEURA: No significant pleural effusion identified, no pneumothorax apparent. CARDIOVASCULAR: No atherosclerotic calcification present Normal. OSSEOUS STRUCTURES: No significant abnormalities. VISUALIZED UPPER ABDOMEN: Normal. OTHER FINDINGS: None. IMPRESSION: No active disease. No significant interval change compared to the prior examination(s).
[2018-08-24 12:45] LABS: SQUAMOUS EPITHIAL < 1 /hpf (0-5); URINE BILIRUBIN NEGATIVE (NEGATIVE); URINE BLOOD SMALL (NEGATIVE); URINE CLARITY CLEAR (Clear); URINE COLOR YELLOW (YELLOW); URINE GLUCOSE (UA) NEG (NEGATIVE); URINE LEUKOCYTE ESTERASE NEG Leu/uL (Negative); URINE PROTEIN NEGATIVE (NEGATIVE); URINE UROBILINOGEN 0.2-1.0 mg/dL (0.2-1.0)
--- NOTE | 2018-08-24 12:54 | CP.PCM.PCO ---
Assessment/Plan - Assessment/Plan Assessment (Free Text): Pt stable, eager to go home. Seen and cleared for d/c home by Dr. Santos with outpatient cardiology f/u. Per Dr. Santos, pt to be d/c'd on BB and ASA, Rx given for Metoprolol and ASA. Pt seen and cleared for d/c home by Dr. Black who recommends pt be dc'd on Augmentin and not Keflex as ordered by podiatry. Rx Augment x 7 days given. Pt aware to take Augmentin and not Keflex, verbalizes understanding. Pt was given Rx for Lovenox and percocet by podiatry, Dr. Duarte
--- NOTE | 2018-08-24 16:15 | PN ---
DATE: 08/24/2018 SUBJECTIVE: The patient underwent open reduction and internal fixation of his distal left fibular fracture yesterday, was kept for a few hours on his non-telemetry bed and was later transferred to telemetry. His sinus tachycardia is improved. He did report some epigastric discomfort which he attributed to his reflux. Today, the patient is chest pain-free, has no epigastric pain. PHYSICAL EXAMINATION: VITAL SIGNS: Blood pressure 117/64, heart rate 62, temperature 98.8, respirations 18. HEENT: Normocephalic. CHEST: Clear. HEART: S1 and S2, regular. ABDOMEN: Soft. EXTREMITIES: No calf tenderness. LABORATORY DATA: Today's hemoglobin and hematocrit 14.9 and 45.1, white count 16.5, platelet count 277,000. Today's SMA-7: Sodium 136, potassium 4.2, chloride 97, CO2 of 29, glucose 129, BUN 19, and creatinine 1.1. Troponin done this morning is within normal limits. EKG done this morning revealed sinus rhythm at the rate of 68, left bundle-branch block. ASSESSMENT: 1. Status post open reduction and internal fixation of distal left fibular fracture. 2. Left bundle-branch block. 3. Consider underlying coronary artery disease. RECOMMENDATIONS: The situation was discussed with the patient in details. His presumed reflux as well as reactive lung disease can be actually ischemic coronary disease. The patient was strongly advised to follow up with his confidential investigator which he states that he retired, but he was given another appointment in two weeks for another confidential investigator. The patient was advised to comply with any recommendations including cardiac catheterization. In the meantime, the patient was started on aspirin and Lopressor therapy yesterday and will be maintained on both aspirin and Lopressor as an outpatient besides his subcutaneous daily Lovenox. The patient was instructed to come to the emergency room if he develops any chest pain or even what he thinks as reflux symptoms. Hong Santos MD
--- NOTE | 2018-08-24 17:16 | CARD ---
APPROVED REPORT Date of service: 08/24/2018 EKG Measurement Heart [id number] <Conclusion> Normal sinus rhythm Left bundle branch block Abnormal ECG
--- NOTE | 2018-08-24 18:51 | CP.PCM.DIS ---
Provider - Provider Date of Admission: 08/21/18 12:44 Attending physician: Maxi Black MD Consults: 08/21/18 19:27 Cardiology Consult Routine Comment: Consulting Provider: Hong Santos Consulting Physician: Hong Santos Reason for Consult: LBBB, PREOP EVAL Time Spent in preparation of Discharge (in minutes): 30 Diagnosis - Discharge Diagnosis (1) Displaced fracture of fibula Status: Acute Hospital Course - Lab Results Lab Results: Most Recent Lab Values WBC 16.5 K/uL (4.8-10.8) H D 08/24/18 05:10 RBC 5.21 Mil/uL (4.40-5.90) 08/24/18 05:10 Hgb 14.9 g/dL (12.0-18.0) 08/24/18 05:10 Hct 45.1 % (35.0-51.0) 08/24/18 05:10 MCV 86.7 fl (80.0-94.0) 08/24/18 05:10 MCH 28.6 pg (27.0-31.0) 08/24/18 05:10 MCHC 33.0 g/dL (33.0-37.0) 08/24/18 05:10 RDW 14.6 % (11.5-14.5) H 08/24/18 05:10 Plt Count 277 K/uL (130-400) 08/24/18 05:10 MPV 9.2 fl (7.2-11.7) 08/21/18 13:00 Neut % (Auto) 53.2 % (50.0-75.0) 08/21/18 13:00 Lymph % (Auto) 33.8 % (20.0-40.0) 08/21/18 13:00 [place] % (Auto) 9.4 % (0.0-10.0) 08/21/18 13:00 Eos % (Auto) 2.5 % (0.0-4.0) 08/21/18 13:00 Baso % (Auto) 1.1 % (0.0-2.0) 08/21/18 13:00 Neut # (Auto) 2.8 K/uL (1.8-7.0) 08/21/18 13:00 Lymph # (Auto) 1.8 K/uL (1.0-4.3) 08/21/18 13:00 [place] # (Auto) 0.5 K/uL (0.0-0.8) 08/21/18 13:00 Eos # (Auto) 0.1 K/uL (0.0-0.7) 08/21/18 13:00 Baso # (Auto) 0.1 K/uL (0.0-0.2) 08/21/18 13:00 PT 11.4 Seconds (9.8-13.1) 08/21/18 13:00 INR 1.0 08/21/18 13:00 APTT 33.6 Seconds (25.6-37.1) 08/21/18 13:00 Sodium 136 mmol/l (132-148) 08/24/18 05:10 Potassium 4.2 MMOL/L (3.6-5.0) 08/24/18 05:10 Chloride 97 mmol/L (98-107) L 08/24/18 05:10 Carbon Dioxide 29 mmol/L (22-30) 08/24/18 05:10 Anion Gap 14 (10-20) 08/24/18 05:10 BUN 19 mg/dl (9-20) 08/24/18 05:10 Creatinine 1.1 mg/dl (0.8-1.5) 08/24/18 05:10 Est GFR ( Amer) > 60 08/24/18 05:10 Est GFR (Non-Af Amer) > 60 08/24/18 05:10 Random Glucose 129 mg/dL (75-110) H 08/24/18 05:10 Calcium 9.5 mg/dL (8.4-10.2) 08/24/18 05:10 Total Bilirubin 0.6 mg/dl (0.2-1.3) 08/21/18 13:00 AST 24 U/L (17-59) 08/21/18 13:00 ALT 29 U/L (21-72) 08/21/18 13:00 Alkaline Phosphatase 112 U/L (38-126) 08/21/18 13:00 Troponin I < 0.0120 ng/mL (0.00-0.120) 08/24/18 09:25 Total Protein 7.7 G/DL (6.3-8.2) 08/21/18 13:00 Albumin 4.3 g/dL (3.5-5.0) 08/21/18 13:00 Globulin 3.4 gm/dL (2.2-3.9) 08/21/18 13:00 Albumin/Globulin Ratio 1.3 (1.0-2.1) 08/21/18 13:00 Urine Color Yellow (YELLOW) 08/24/18 12:35 Urine Clarity Clear (Clear) 08/24/18 12:35 Urine pH 5.0 (5.0-8.0) 08/24/18 12:35 Ur Specific [place] 1.008 (1.003-1.030) 08/24/18 12:35 Urine Protein Negative mg/dL (NEGATIVE) 08/24/18 12:35 Urine Glucose (UA) Neg mg/dL (NEGATIVE) 08/24/18 12:35 Urine Ketones Negative mg/dL (NEGATIVE) 08/24/18 12:35 Urine Blood Small (NEGATIVE) 08/24/18 12:35 Urine Nitrate Negative (NEGATIVE) 08/24/18 12:35 Urine Bilirubin Negative (NEGATIVE) 08/24/18 12:35 Urine Urobilinogen 0.2-1.0 mg/dL (0.2-1.0) 08/24/18 12:35 Ur Leukocyte Esterase Neg Alok/uL (Negative) 08/24/18 12:35 Urine RBC (Auto) < 1 /hpf (0-3) 08/24/18 12:35 Urine Microscopic WBC 1 /hpf (0-5) 08/24/18 12:35 Ur Squamous Epith Cells < 1 /hpf (0-5) 08/24/18 12:35 Blood Type A POSITIVE 08/21/18 13:00 Blood Type Confirm A POSITIVE 08/21/18 13:26 Antibody Screen Negative 08/21/18 13:00 BBK History Checked No verified bt 08/21/18 13:00 - Hospital Course Hospital Course: 68 y/o male with hx of HTN and CAD admitted for surgical intervention for distal left fibular fracture. He fell on ice 3 weeks ago and self treated it as a sprain of the left ankle. Noted to have persistent left ankle swelling hence sought evaluation and Xray showed left distal fibular fracture. EKG showed LBBB and non sp ST changes. Cardiology was consulted Patient was optimized for surgery. Podiatry completed surgery without complications Pt stable, eager to go home. Seen and cleared for d/c home by Dr. Santos with outpatient cardiology f/u. Per Dr. Santos, pt to be d/c'd on BB and ASA, Rx given for Metoprolol and ASA. Rx Augment x 7 days given. Pt was given Rx for Lovenox and percocet by podiatry, Dr. Duarte Patient to follow up with providers as scheduled Discharge Exam - Head Exam Head Exam: ATRAUMATIC, NORMOCEPHALIC - Eye Exam Eye Exam: Normal appearance - Respiratory Exam Respiratory Exam: NORMAL BREATHING PATTERN - Cardiovascular Exam Cardiovascular Exam: +S1, +S2 - Neurological Exam Neurological exam: Alert, Oriented x3 - Psychiatric Exam Psychiatric exam: Normal Affect, Normal Mood - Skin Skin Exam: Normal Color, Warm Discharge Plan - Discharge Medications Prescriptions: Amoxicillin/Clavulanate [Augmentin 875 MG-125 MG] 1 tab PO BID #14 tab Metoprolol Tartrate [Lopressor] 25 mg PO Q12 #60 tab - Follow Up Plan Condition: STABLE Disposition: HOME/ ROUTINE Instructions: Fibula Fracture (DC), Open Reduction and Internal Fixation Surgery (DC), How to Give a Blood Thinner Shot , Weight-Bearing Restrictions Additional Instructions: follow up with your primary MD and Dr. Duarte 1 week non weight bearing with crutches and keep dressing dry and clean Referrals: Dakota Duarte MD [Staff Provider] - Hong Santos MD [Staff Provider] - Bruce Sethi [Medical Doctor] - Maxi Black MD [Medical Doctor] -
--- NOTE | 2018-08-25 02:22 | CP.PCM.PN ---
Subjective - Date & Time of Evaluation Date of Evaluation: 08/23/18 Time of Evaluation: 07:00 - Subjective Subjective: Pt seen and assessed at bedside. For surgery today to repair distal left fibula fracture. No new complaints reported. Subjective Review of Systems: reviewed and no additional remarkable complaints except LLE p ain. Objective Vital Signs Stable. Appears: Uncomfortable, No Acute Distress. Head Exam: NORMAL INSPECTION, normocephalic. Eye Exam: Normal appearance, PERRLA, EOMI. Respiratory Exam: NORMAL BREATHING PATTERN, breath sounds clear bilaterally. Cardiovascular Exam: +S1, +S2. RRR. GI & Abdominal Exam: Soft, non-tender, non-distended. Neurological Exam: Alert, Awake, Oriented x3. Musculoskeletal Exam: 1+ to 2+ edema noted to LLE at left distal fibula site. ROM remains 5/5 in BLE. Psychiatric exam: Normal Affect, Normal Mood. Skin Exam: Normal Color, Warm, Dry. Assessment/Impression/Plan: 1.) Fibula Fracture -For Fibula ORIF today. -cleared by cardiology. -Pt will need telemetry monitoring post-operatively. -Continue current tx. -Consults appreciated input. Objective - Vital Signs/Intake and Output Vital Signs (last 24 hours): Temp Pulse Resp BP Pulse Ox 98.8 F 62 18 117/64 95 08/24/18 12:04 08/24/18 12:04 08/24/18 12:04 08/24/18 12:04 08/24/18 12:04 - Labs Labs: 08/24/18 05:10 08/24/18 05:10 PT 11.4 Seconds (9.8-13.1) 08/21/18 13:00 INR 1.0 08/21/18 13:00 APTT 33.6 Seconds (25.6-37.1) 08/21/18 13:00 Assessment and Plan (1) Displaced fracture of fibula Status: Acute
== END 2018-08-24 13:25 | disposition home or self-care (01) | DRG 494 ==
LOC: H.ER 12:05 → H.ERHOLD 12:44 → H.MEDSURG1 16:00 → H.TEL 08-23 21:50
PROVIDERS: ADMIT Family Medicine; ATTEND Family Medicine
PROC: 0QSK04Z Reposition Left Fibula with Internal Fixation Device, Open Approach (ICD-10-PCS; principal; 2018-08-23 09:15)
DX: S82.832A Other fracture of upper and lower end of left fibula, initial encounter for closed fracture (principal); K21.9 Gastro-esophageal reflux disease without esophagitis; I10 Essential (primary) hypertension; W00.0XXA Fall on same level due to ice and snow, initial encounter; J45.909 Unspecified asthma, uncomplicated; I25.10 Atherosclerotic heart disease of native coronary artery without angina pectoris; Z87.891 Personal history of nicotine dependence; I25.2 Old myocardial infarction; I44.7 Left bundle-branch block, unspecified; Z90.49 Acquired absence of other specified parts of digestive tract